=== PATIENT | male | born 1955 | race African-American/Black ===

== ENCOUNTER 2018-01-14 04:55 | Emergency (ER) | payer MEDICAID ==
[~2018-01-14] VITALS: Ht 177.8 cm; Wt 100.0 kg
[2018-01-14] MEDS ORDERED: LORAZEPAM 1MG TABLET PO ONE (07:15)
[2018-01-14] MEDS ORDERED: NITROGLYCERIN 0.4MG TABLET SL SL PRN (07:15)
[2018-01-14] MEDS ORDERED: ASPIRIN 81MG TABLET PO ONE (07:15)
[2018-01-14 07:40] VITALS: BP 115/65
[2018-01-14 08:25] LABS: INR 1.1; PARTIAL THROMBOPLASTIN TIME 28.8 sec (23.4-31.0); PROTHROMBIN TIME 10.7 sec (9.1-11.1)
[2018-01-14 08:27] LABS: BASOPHILS % 0.2 % (0.0-2.0); EOSINOPHILS % 1.1 % (0.0-5.0); HEMATOCRIT. 37.1 % (42.0-52.0); LYMPHOCYTES % 17.9 % (20.0-50.0); MEAN CORPUSCULAR VOLUME 92.5 fL (80.0-94.0); MEAN PLATELET VOLUME 8.9 fl (7.4-10.4); MONOCYTES % 9.8 % (2.0-8.0); PLATELET 217 x1000/uL (130-400); RED BLOOD CELL COUNT 4.01 mill/uL (4.7-6.1); RED CELL DISTRIBUTION WIDTH 15.2 % (11.6-14.6)
[2018-01-14 09:48] LABS: CHLORIDE 107 mEq/L (98-107)
[2018-01-14 09:55] LABS: ETHANOL BLOOD < 10 mg/dL
== END 2018-01-14 08:51 | disposition left against medical advice (07) ==
LOC: ER 04:55 → CANBEDREQ 09:54
DX: R07.89 Other chest pain (principal); I10 Essential (primary) hypertension; Z88.0 Allergy status to penicillin; F17.200 Nicotine dependence, unspecified, uncomplicated; F12.10 Cannabis abuse, uncomplicated; F15.10 Other stimulant abuse, uncomplicated; F14.10 Cocaine abuse, uncomplicated; F11.10 Opioid abuse, uncomplicated
CPT/HCPCS: 36415; 71045; 80053; 83880; 84484; 85025; 85610; 85730; 93005; 99285; G0482; Z7610

== ENCOUNTER 2019-01-28 11:50 | Inpatient (IN) | payer MEDICAID, OTHER ==
[~2019-01-28] VITALS: Ht 185.4 cm; Wt 100.7 kg
[2019-01-28] MEDS ORDERED: ONDANSETRON HCL 4MG/2ML INJ IV STA (12:19)
[2019-01-28] MEDS ORDERED: MORPHINE SULFATE 4 MG/ML CPJ (NOT FOR IM USE) IV STA (12:19)
[2019-01-28] MEDS ORDERED: FAMOTIDINE 20MG/2ML VIAL IV ONE (12:30)
[2019-01-28 13:27] LABS: BASOPHILS % 0.4 % (0.0-2.0); EOSINOPHILS % 0.1 % (0.0-5.0); HEMATOCRIT. 38.6 % (42.0-52.0); HEMOGLOBIN. 12.6 g/dL (14.0-18.0); LYMPHOCYTES % 26.2 % (20.0-50.0); MEAN CORPUSCULAR HEMOGLOBIN 30.1 pg (28.0-32.0); MEAN CORPUSCULAR VOLUME 92.3 fL (80.0-94.0); MEAN PLATELET VOLUME 9.1 fl (7.4-10.4); MONOCYTES % 8.7 % (2.0-8.0); NEUTROPHILS % 64.6 % (40.0-76.0); PLATELET 144 x1000/uL (130-400); RED BLOOD CELL COUNT 4.18 mill/uL (4.7-6.1); RED CELL DISTRIBUTION WIDTH 14.6 % (11.6-14.6)
[2019-01-28 13:34] LABS: CHLORIDE 108 mEq/L (98-107)
[2019-01-28 14:31] LABS: CLARITY URINE CLEAR (CLEAR); COLOR URINE YELLOW (YELLOW); KETONES URINE NEGATIVE (NEGATIVE); LEUKOCYTE ESTERASE URINE TRACE (NEGATIVE); NITRITE URINE NEGATIVE (NEGATIVE); OCCULT BLOOD URINE 2+ (NEGATIVE); PROTEIN URINE NEGATIVE (NEGATIVE); SPECIFIC GRAVITY URINE 1.003 (1.005-1.030); UROBILINOGEN URINE 0.2 E.U./dL (0.2-1.0)
[2019-01-28] MEDS ORDERED: ASPIRIN 325MG EC TABLET PO ONE (16:15)
[2019-01-28] MEDS ORDERED: CLONIDINE 0.1MG TABLET PO PRN (17:15)
[2019-01-28] MEDS ORDERED: NITROGLYCERIN OINT 1GM/INCH UDPKT TD SCH (18:00)
[2019-01-28] MEDS ORDERED: DILTIAZEM HCL 30MG TABLET PO SCH (18:00)
[2019-01-28] MEDS ORDERED: DIPHENHYDRAMINE 50MG/ML VIAL IV PRN (18:30)
[2019-01-28] MEDS ORDERED: ONDANSETRON HCL 4MG/2ML INJ IV PRN (18:30)
[2019-01-28] MEDS ORDERED: DOCUSATE SODIUM 100MG CAPSULE PO PRN (18:30)
[2019-01-28] MEDS ORDERED: MAGNESIUM/ALUMINUM HYDROXIDE/SIMETHICONE 30ML UDC PO PRN (18:30)
[2019-01-28] MEDS ORDERED: GUAIFENESIN 200MG/10ML SUGAR FREE UDC PO PRN (18:30)
[2019-01-28 19:00] LABS: PHOSPHORUS 3.2 mg/dL (2.5-4.9)
[2019-01-28 19:59] LABS: *BARBITURATES SCREEN URINE NEGATIVE (NEGATIVE)
[2019-01-28 20:00] LABS: *AMPHETAMINES SCREEN URINE PRESUMTIVE POSITIVE (NEGATIVE); *BENZODIAZEPINES SCREEN URINE NEGATIVE (NEGATIVE); *COCAINE SCREEN URINE PRESUMTIVE POSITIVE (NEGATIVE); METHADONE URINE SCREEN NEGATIVE (NEGATIVE); OPIATES URINE SCREEN PRESUMTIVE POSITIVE (NEGATIVE)
[2019-01-28 20:01] LABS: CANNABINOID URINE SCREEN NEGATIVE (NEGATIVE); PHENCYCLIDINE URINE SCREEN NEGATIVE (NEGATIVE)
[2019-01-28 23:12] VITALS: BP 97/67
[2019-01-29 00:48] VITALS: BP 102/72
[2019-01-29] MEDS: DILTIAZEM HCL 30MG TABLET PO SCH ×4 (06:28→17:14)
[2019-01-29 07:09] LABS: BASOPHILS % 0.4 % (0.0-2.0); EOSINOPHILS % 0.9 % (0.0-5.0); HEMATOCRIT. 37.4 % (42.0-52.0); HEMOGLOBIN. 12.6 g/dL (14.0-18.0); LYMPHOCYTES % 34.7 % (20.0-50.0); MEAN CORPUSCULAR HEMOGLOBIN 30.7 pg (28.0-32.0); MEAN CORPUSCULAR VOLUME 90.7 fL (80.0-94.0); MEAN PLATELET VOLUME 9.6 fl (7.4-10.4); MONOCYTES % 8.1 % (2.0-8.0); NEUTROPHILS % 55.9 % (40.0-76.0); PLATELET 131 x1000/uL (130-400); RED BLOOD CELL COUNT 4.12 mill/uL (4.7-6.1); RED CELL DISTRIBUTION WIDTH 14.5 % (11.6-14.6)
[2019-01-29 07:39] LABS: CHLORIDE 108 mEq/L (98-107)
[2019-01-29 07:55] LABS: CREATINE KINASE MB FRACTION 28.1 ng/mL (0.5-3.6)
[2019-01-29 07:58] LABS: CREATINE KINASE 816 IU/L (39-308); LDL CHOLESTEROL 63 mg/dL (5-100)
[2019-01-29 07:59] LABS: HDL CHOLESTEROL 31 mg/dL (40-59)
[2019-01-29] MEDS ORDERED: COR3 MT (08:12)
[2019-01-29] MEDS ORDERED: FERR324T4 MT (08:12)
[2019-01-29 08:38] VITALS: BP 101/64
[2019-01-29] MEDS ORDERED: PROT40 MT (08:53)
[2019-01-29] MEDS ORDERED: ASPI-1393 PO (08:53)
[2019-01-29] MEDS ORDERED: ISOS30TA12 MT (08:53)
[2019-01-29] MEDS ORDERED: FURO-151 MT (08:53)
[2019-01-29] MEDS: NITROGLYCERIN OINT 1GM/INCH UDPKT TD SCH ×4 (09:00→22:00)
[2019-01-29] MEDS: ASPIRIN 81MG EC TABLET PO SCH ×2 (09:00→17:17)
[2019-01-29 12:17] VITALS: BP 101/61
[2019-01-29] MEDS: CARVEDILOL 3.125 MG TABLET PO SCH (12:30)
[2019-01-29] MEDS: FUROSEMIDE 40MG TABLET PO SCH (13:08)
[2019-01-29] MEDS: PANTOPRAZOLE 40MG DR TABLET PO SCH (13:08)
[2019-01-29] MEDS: FERROUS SULFATE 325MG TABLET PO SCH ×2 (13:08→17:17)
[2019-01-29 15:57] VITALS: BP 100/61
[2019-01-29] MEDS: IPRATROPIUM/ALBUTEROL 0.5-3(2.5)MG/3ML NEB HHN PRN ×2 (16:06→20:44)
[2019-01-29] MEDS: ACETAMINOPHEN 325MG TABLET PO PRN (17:34)
[2019-01-29 20:25] VITALS: BP 109/73
[2019-01-29] MEDS: ATORVASTATIN CALCIUM 40MG TABLET PO SCH (20:42)
[2019-01-29] MEDS ORDERED: POTASSIUM CHLORIDE 20MEQ TABLET SR PO NR ×2 (21:45→23:00)
[2019-01-30] VITALS (7 sets, daily range): BP systolic 97–130; BP diastolic 62–75
[2019-01-30] MEDS: IPRATROPIUM/ALBUTEROL 0.5-3(2.5)MG/3ML NEB HHN PRN ×2 (00:27→04:28)
[2019-01-30] MEDS: DILTIAZEM HCL 30MG TABLET PO SCH ×4 (05:57→17:41)
[2019-01-30] MEDS: NITROGLYCERIN OINT 1GM/INCH UDPKT TD SCH ×3 (05:58→21:35)
[2019-01-30] MEDS: ASPIRIN 81MG EC TABLET PO SCH ×2 (08:04→16:08)
[2019-01-30] MEDS: FERROUS SULFATE 325MG TABLET PO SCH ×3 (08:04→17:43)
[2019-01-30] MEDS: NICOTINE 7MG PATCH TD SCH (08:04)
[2019-01-30] MEDS: FUROSEMIDE 40MG TABLET PO SCH (08:04)
[2019-01-30] MEDS: PANTOPRAZOLE 40MG DR TABLET PO SCH (08:04)
[2019-01-30] MEDS: CARVEDILOL 3.125 MG TABLET PO SCH (08:05)
[2019-01-30 10:31] LABS: BASOPHILS % 0.5 % (0.0-2.0); EOSINOPHILS % 1.3 % (0.0-5.0); HEMATOCRIT. 37.4 % (42.0-52.0); HEMOGLOBIN. 12.4 g/dL (14.0-18.0); LYMPHOCYTES % 27.3 % (20.0-50.0); MEAN CORPUSCULAR HEMOGLOBIN 30.3 pg (28.0-32.0); MEAN CORPUSCULAR VOLUME 91.3 fL (80.0-94.0); MEAN PLATELET VOLUME 9.3 fl (7.4-10.4); MONOCYTES % 8.3 % (2.0-8.0); NEUTROPHILS % 62.6 % (40.0-76.0); PLATELET 130 x1000/uL (130-400); RED BLOOD CELL COUNT 4.09 mill/uL (4.7-6.1); RED CELL DISTRIBUTION WIDTH 14.3 % (11.6-14.6)
[2019-01-30 10:38] LABS: CHLORIDE 110 mEq/L (98-107)
[2019-01-30] MEDS: SPIRONOLACTONE 25MG TABLET PO SCH (16:08)
[2019-01-30] MEDS: ATORVASTATIN CALCIUM 40MG TABLET PO SCH (21:20)
[2019-01-30] MEDS: ACETAMINOPHEN 325MG TABLET PO PRN (21:40)
[2019-01-31] VITALS: BP 114/83
[2019-01-31 04:00] VITALS: BP 117/72
[2019-01-31] MEDS: NITROGLYCERIN OINT 1GM/INCH UDPKT TD SCH ×3 (06:00→22:00)
[2019-01-31] MEDS: PANTOPRAZOLE 40MG DR TABLET PO SCH (06:46)
[2019-01-31] MEDS: DILTIAZEM HCL 30MG TABLET PO SCH ×4 (06:56→17:34)
[2019-01-31 07:18] LABS: BASOPHILS % 0.3 % (0.0-2.0); EOSINOPHILS % 1.9 % (0.0-5.0); HEMATOCRIT. 37.4 % (42.0-52.0); HEMOGLOBIN. 12.8 g/dL (14.0-18.0); LYMPHOCYTES % 35.4 % (20.0-50.0); MEAN CORPUSCULAR HEMOGLOBIN 31.2 pg (28.0-32.0); MEAN CORPUSCULAR VOLUME 91.1 fL (80.0-94.0); MEAN PLATELET VOLUME 9.6 fl (7.4-10.4); MONOCYTES % 9.3 % (2.0-8.0); NEUTROPHILS % 53.1 % (40.0-76.0); PLATELET 141 x1000/uL (130-400); RED BLOOD CELL COUNT 4.11 mill/uL (4.7-6.1); RED CELL DISTRIBUTION WIDTH 14.3 % (11.6-14.6)
[2019-01-31 07:57] LABS: CHLORIDE 107 mEq/L (98-107)
[2019-01-31 08:00] VITALS: BP 120/78
[2019-01-31 08:15] LABS: CREATINE KINASE 364 IU/L (39-308)
[2019-01-31 08:17] LABS: CREATINE KINASE MB FRACTION 5.4 ng/mL (0.5-3.6)
[2019-01-31] MEDS: FERROUS SULFATE 325MG TABLET PO SCH ×3 (08:26→17:34)
[2019-01-31] MEDS: ASPIRIN 81MG EC TABLET PO SCH ×2 (08:26→17:34)
[2019-01-31] MEDS: SPIRONOLACTONE 25MG TABLET PO SCH (08:26)
[2019-01-31] MEDS: FUROSEMIDE 40MG TABLET PO SCH (08:26)
[2019-01-31] MEDS: NICOTINE 7MG PATCH TD SCH (08:27)
[2019-01-31 12:25] VITALS: BP 116/64
[2019-01-31] MEDS ORDERED: SPIR25TA6 PO (13:56)
[2019-01-31] MEDS ORDERED: LIP40 PO (13:56)
[2019-01-31] MEDS ORDERED: QUET25TA PO (13:59)
[2019-01-31] MEDS ORDERED: NAPR500T7 PO (13:59)
[2019-01-31] MEDS ORDERED: POTA20TA82 PO (13:59)
[2019-01-31] MEDS ORDERED: ALBU18HF2 IH (13:59)
[2019-01-31] MEDS ORDERED: FOLI-43 PO (13:59)
[2019-01-31] MEDS ORDERED: ACET-2178 PO (14:02)
[2019-01-31] MEDS ORDERED: MIRT15TA PO (14:02)
[2019-01-31] MEDS ORDERED: CYCL10TA7 PO (14:24)
[2019-01-31] MEDS ORDERED: FLUT1DIS3 INH (14:24)
[2019-01-31 16:05] VITALS: BP 126/74
[2019-01-31 20:51] VITALS: BP 111/64
[2019-01-31] MEDS: ATORVASTATIN CALCIUM 40MG TABLET PO SCH (22:07)
[2019-02-01] VITALS: BP 98/61
[2019-02-01 04:00] VITALS: BP 103/72
[2019-02-01] MEDS: DILTIAZEM HCL 30MG TABLET PO SCH ×2 (05:48)
[2019-02-01] MEDS: NITROGLYCERIN OINT 1GM/INCH UDPKT TD SCH (06:00)
[2019-02-01] MEDS: PANTOPRAZOLE 40MG DR TABLET PO SCH (06:31)
[2019-02-01 08:00] VITALS: BP 127/73
[2019-02-01] MEDS: ASPIRIN 81MG EC TABLET PO SCH (08:29)
[2019-02-01] MEDS: SPIRONOLACTONE 25MG TABLET PO SCH (08:30)
[2019-02-01] MEDS: FERROUS SULFATE 325MG TABLET PO SCH (08:30)
[2019-02-01] MEDS: FUROSEMIDE 40MG TABLET PO SCH (08:30)
[2019-02-01] MEDS ORDERED: NITROGLYCERIN 0.4MG TABLET SL SL PRN (10:15)
[2019-02-01 10:31] VITALS: BP 127/73
== END 2019-02-01 11:24 | disposition home or self-care (01) | DRG 816 ==
LOC: ER 11:50 → 6WST 18:04 → EDBEDREQ 18:20 → EDBEDREQTM 18:21 → ENRESERV 20:03
PROVIDERS: ADMIT Internal Medicine; ATTEND Internal Medicine
DX: T40.5X1A Poisoning by cocaine, accidental (unintentional), initial encounter (principal); I21.4 Non-ST elevation (NSTEMI) myocardial infarction; E46 Unspecified protein-calorie malnutrition; I42.9 Cardiomyopathy, unspecified; I11.0 Hypertensive heart disease with heart failure; I50.9 Heart failure, unspecified; D50.9 Iron deficiency anemia, unspecified; F10.10 Alcohol abuse, uncomplicated; T43.621A Poisoning by amphetamines, accidental (unintentional), initial encounter; E78.00 Pure hypercholesterolemia, unspecified; E78.5 Hyperlipidemia, unspecified; F17.200 Nicotine dependence, unspecified, uncomplicated; I50.20 Unspecified systolic (congestive) heart failure; I25.5 Ischemic cardiomyopathy; F15.10 Other stimulant abuse, uncomplicated; F14.10 Cocaine abuse, uncomplicated; Z68.29 Body mass index [BMI] 29.0-29.9, adult; Z79.51 Long term (current) use of inhaled steroids; Z88.1 Allergy status to other antibiotic agents
CPT/HCPCS: 36415; 71045; 71250; 74176; 80048; 80061; 80305; 81003; 82550; 82553; 83735; 83880; 84100; 84443; 84484; 85379; 93005; 93306; 93970; 94640; 97162; 97166; 99285; J2270; J2405; J3490; J7620

== ENCOUNTER 2019-05-08 15:12 | Emergency (ER) | payer MEDICAID ==
[~2019-05-08] VITALS: Ht 182.9 cm; Wt 100.0 kg
[~2019-05-08 15:12] MED LIST: ALBU18HF2 IH; COR3 MT; CYCL10TA7 PO; FERR324T4 MT; FLUT1DIS3 INH; FOLI-43 PO; FURO-151 MT; ISOS30TA12 MT; LIP40 PO; MIRT15TA PO; NAPR500T7 PO; POTA20TA82 PO; PROT40 MT; QUET25TA PO; SPIR25TA6 PO; TOPUD PO
[2019-05-08] MEDS ORDERED: IPRATROPIUM BROMIDE (0.02%) 0.5MG/2.5ML NEB HHN STA (16:17)
[2019-05-08] MEDS ORDERED: ALBUTEROL (0.083%) 2.5MG/3ML NEB HHN STA (16:17)
[2019-05-08] MEDS ORDERED: ONDANSETRON HCL 4MG/2ML INJ IV STA (16:17)
[2019-05-08] MEDS ORDERED: MORPHINE SULFATE 4 MG/ML CPJ (NOT FOR IM USE) IV STA (16:17)
[2019-05-08 16:27] LABS: BASOPHILS % 1.2 % (0.0-2.0); EOSINOPHILS % 3.3 % (0.0-5.0); HEMATOCRIT. 39.7 % (42.0-52.0); HEMOGLOBIN. 13.1 g/dL (14.0-18.0); MEAN CORPUSCULAR HEMOGLOBIN 31.1 pg (28.0-32.0); MEAN CORPUSCULAR VOLUME 94.6 fL (80.0-94.0); MEAN PLATELET VOLUME 9.6 fl (7.4-10.4); MONOCYTES % 9.6 % (2.0-8.0); NEUTROPHILS % 57.9 % (40.0-76.0); PLATELET 155 x1000/uL (130-400); RED CELL DISTRIBUTION WIDTH 14.8 % (11.6-14.6)
[2019-05-08 16:28] LABS: CLARITY URINE CLEAR (CLEAR); COLOR URINE DARK YELLOW (YELLOW); KETONES URINE TRACE (NEGATIVE); LEUKOCYTE ESTERASE URINE NEGATIVE (NEGATIVE); NITRITE URINE NEGATIVE (NEGATIVE); OCCULT BLOOD URINE NEGATIVE (NEGATIVE); PROTEIN URINE NEGATIVE (NEGATIVE); SPECIFIC GRAVITY URINE 1.019 (1.005-1.030)
[2019-05-08] MEDS ORDERED: ASPIRIN 81MG TABLET PO ONE (16:30)
[2019-05-08] MEDS ORDERED: NITROGLYCERIN OINT 1GM/INCH UDPKT TD ONE (16:30)
[2019-05-08 16:33] LABS: CHLORIDE 111 mEq/L (98-107)
[2019-05-08 16:37] LABS: ETHANOL BLOOD 16 mg/dL
[2019-05-08 16:39] LABS: *AMPHETAMINES SCREEN URINE NEGATIVE (NEGATIVE); *BARBITURATES SCREEN URINE NEGATIVE (NEGATIVE); *BENZODIAZEPINES SCREEN URINE NEGATIVE (NEGATIVE); *COCAINE SCREEN URINE PRESUMTIVE POSITIVE (NEGATIVE); METHADONE URINE SCREEN NEGATIVE (NEGATIVE)
[2019-05-08 16:40] LABS: CANNABINOID URINE SCREEN PRESUMTIVE POSITIVE (NEGATIVE); OPIATES URINE SCREEN NEGATIVE (NEGATIVE); PHENCYCLIDINE URINE SCREEN NEGATIVE (NEGATIVE)
[2019-05-08] MEDS ORDERED: FUROSEMIDE 20MG/2ML VIAL IVP ONE (17:00)
[2019-05-08 22:57] VITALS: BP 103/68
== END 2019-05-08 23:24 | disposition short-term general hospital (02) ==
LOC: ER 15:12 → CANBEDREQ 17:45 → ER 23:24
DX: F14.129 Cocaine abuse with intoxication, unspecified (principal); R07.9 Chest pain, unspecified; I11.0 Hypertensive heart disease with heart failure; I50.9 Heart failure, unspecified; Z88.1 Allergy status to other antibiotic agents; Z88.8 Allergy status to other drugs, medicaments and biological substances; Z79.899 Other long term (current) drug therapy
CPT/HCPCS: 36415; 71045; 80053; 80305; 80320; 81003; 83690; 83735; 83880; 84443; 84484; 85025; 93005; 94640; 96374; 99291; J1940; J7611; Z7610; G0480

== ENCOUNTER 2020-05-18 15:42 | Emergency (ER) | payer OTHER | END 2020-05-18 17:07 | disposition left against medical advice (07) | LOC: ER 15:42 | DX: Z53.21 Procedure and treatment not carried out due to patient leaving prior to being seen by health care provider (principal) ==